=== PATIENT | female | born 1950 | race Caucasian/White ===

== ENCOUNTER 2017-08-21 09:25 | Emergency (ER) | payer MEDICARE, BC ==
[2017-08-21 11:46] VITALS: BP 179/81
--- NOTE | 2017-08-21 11:56 | UC ---
Respiratory Complaint HPI - HPI Summary HPI Summary: !0 days of worsening could and sinus pain, now cannot sleep at night due to cough - History of Current Complaint Chief Complaint: UCRespiratory Stated Complaint: COUGH,SINUS COMPLAINT Time Seen by Provider: 08/21/17 11:46 Hx Obtained From: Patient Hx Last Menstrual Period: 30 yrs ?: No Onset/Duration: Gradual Onset, Lasting Days - 10 Timing: Constant Severity Initially: Mild Severity Currently: Moderate Character: Cough: Nonproductive Aggravating Factors: Recumbent Position Alleviating Factors: Nothing Associated Signs And Symptoms: Positive: Pleuritic Chest Pain, URI, Nasal Congestion, Sinus Discomfort - Allergies/Home Medications Allergies/Adverse Reactions: Allergies Allergy/AdvReac Type Severity Reaction Status Date / Time Penicillins Allergy Severe Hives Verified 08/21/17 11:46 PMH/Surg Hx/FS Hx/Imm Hx Previously Healthy: No Endocrine History: Hypothyroidism, Dyslipidemia - Surgical History Surgical History: Yes Surgery Procedure, Year, and Place: L mastectomy, L kidney , appy - Family History Known Family History: Positive: Cardiac Disease, Hypertension - Social History Occupation: Retired Lives: With Family Alcohol Use: None Substance Use Type: None Smoking Status (MU): Never Smoked Tobacco Type: Cigarettes Amount Used/How Often: 1 PPD Length of Time of Smoking/Using Tobacco: YR 1999 Have You Smoked in the Last Year: No When Did the Patient Quit Smoking/Using Tobacco: 1978 - Immunization History Most Recent Influenza Vaccination: October 2014 Review of Systems Constitutional: Fatigue Skin: Negative Eyes: Negative ENT: Dental Pain, Nasal Discharge, Sinus Congestion, Sinus Pain/Tenderness Respiratory: Cough Cardiovascular: Negative Gastrointestinal: Negative Genitourinary: Negative Motor: Negative Neurovascular: Negative Musculoskeletal: Negative Neurological: Negative Psychological: Negative Is Patient Immunocompromised?: No All Other Systems Reviewed And Are Negative: Yes Physical Exam Triage Information Reviewed: Yes Appearance: Well-Appearing, Well-Nourished, Pain Distress Vital Signs: Initial Vital Signs Temp 97.8 F 08/21/17 11:42 Pulse 72 08/21/17 11:42 Resp 18 08/21/17 11:42 BP 179/81 08/21/17 11:42 Pulse Ox 100 08/21/17 11:42 Vital Signs Reviewed: Yes Eye Exam: Normal Eyes: Positive: Conjunctiva Clear ENT Exam: Normal ENT: Positive: Normal ENT inspection, Hearing grossly normal, Pharynx normal, Nasal congestion, Nasal drainage, TMs normal, Sinus tenderness, Uvula midline. Negative: Tonsillar swelling, Tonsillar exudate, Trismus, Muffled voice, Hoarse voice, Dental tenderness Dental Exam: Normal Neck exam: Normal Neck: Positive: Supple, Nontender, No Lymphadenopathy Respiratory Exam: Normal Respiratory: Positive: Chest non-tender, Lungs clear, Normal breath sounds, No respiratory distress, No accessory muscle use Cardiovascular Exam: Normal Cardiovascular: Positive: RRR, No Murmur, Pulses Normal, Brisk Capillary Refill Musculoskeletal Exam: Normal Musculoskeletal: Positive: Strength Intact, ROM Intact, No Edema Neurological Exam: Normal Neurological: Positive: Alert, Muscle Tone Normal Psychological Exam: Normal Skin Exam: Normal UC Diagnostic Evaluation - Laboratory O2 Sat by Pulse Oximetry: 100 Respiratory Course/Dx - Course Course Of Treatment: continue flonase, albuterol prn, zithromax and robitussin with Codiene rest increase fluids follow with pcp - Differential Dx/Diagnosis Provider Diagnoses: Acute Rhinosinusitis Discharge - Discharge Plan Condition: Stable Disposition: HOME Prescriptions: Albuterol HFA INHALER* [Ventolin HFA Inhaler*] 2 puff INH Q6H PRN #1 mdi PRN Reason: cough Azithromycin TAB* [Zithromax TAB (Z-ANTHONY) 250 mg #6 tabs] 2 tab PO .TODAY, THEN 1 DAILY #1 anthony Guaifenesin-Codeine [Cheratussin AC 100-10 mg/5Ml] 5 - 10 ml PO Q6H #120 syp MDD 40 Patient Education Materials: How to Use a Metered-Dose Inhaler (ED), Acute Bronchitis (ED), Hypertension (ED), Acute Cough (ED) Referrals: Tex REYES,Juancho Good [Primary Care Provider] - 2 Weeks
== END 2017-08-21 12:23 | disposition home or self-care (01) ==
LOC: UCCORT 09:25
DX: J01.90 Acute sinusitis, unspecified (principal); R53.83 Other fatigue; E03.9 Hypothyroidism, unspecified; E78.5 Hyperlipidemia, unspecified; Z88.0 Allergy status to penicillin; Z87.891 Personal history of nicotine dependence
CPT/HCPCS: 99212; G0463

== ENCOUNTER 2018-03-05 09:26 | Emergency (ER) | payer MEDICARE, BC ==
[2018-03-05 11:05] VITALS: BP 147/74
== END 2018-03-05 11:55 | disposition left against medical advice (07) ==
LOC: UCCORT 09:26
DX: R69 Illness, unspecified (principal); Z53.21 Procedure and treatment not carried out due to patient leaving prior to being seen by health care provider

== ENCOUNTER 2018-03-05 15:48 | Emergency (ER) | payer BC, MEDICARE ==
[2018-03-05 16:14] VITALS: BP 162/77
--- NOTE | 2018-03-05 16:22 | UC ---
Throat Pain/Nasal Derick HPI - HPI Summary HPI Summary: 67 y/o female presents to the urgent care c/o left side sinus pain and nasal congestion w/ yellowish nasal discharge for the past 3 weeks. Symptoms have been worsening for the past week and this morning she woke up w/ mild yellowish eye discharge on her left eye w/o any eye redness. Positive yellowish PND. Pain is 4/10. Pt has been taking Advil 600mg Po to alleviate symptoms. Pt denies fever, cough, SOB, chest pain, abdominal pain, N/V/D - History of Current Complaint Chief Complaint: UCRespiratory Stated Complaint: SINUSES Time Seen by Provider: 03/05/18 16:15 Hx Obtained From: Patient Hx Last Menstrual Period: n/a Onset/Duration: Gradual Onset, Lasting Weeks - 3 weeks, Still Present, Worse Since - last week Severity: Moderate Pain Intensity: 4 Pain Scale Used: 0-10 Numeric Cough: None Associated Signs & Symptoms: Positive: Sinus Discomfort, Nasal Discharge - Epiglottits Risk Factors Epiglottis Risk Factors: Negative - Allergies/Home Medications Allergies/Adverse Reactions: Allergies Allergy/AdvReac Type Severity Reaction Status Date / Time Penicillins Allergy Hives Verified 03/05/18 16:14 PMH/Surg Hx/FS Hx/Imm Hx Previously Healthy: Yes Endocrine History: Hypothyroidism, Dyslipidemia Cardiovascular History: Cardiac Disease Respiratory History: Asthma - Surgical History Surgical History: Yes Surgery Procedure, Year, and Place: L mastectomy, L kidney , appy - Family History Known Family History: Positive: Cardiac Disease, Hypertension - Social History Occupation: Retired Lives: With Family Alcohol Use: None Substance Use Type: None Smoking Status (MU): Never Smoked Tobacco Type: Cigarettes Amount Used/How Often: 1 PPD Length of Time of Smoking/Using Tobacco: YR 1999 Have You Smoked in the Last Year: No When Did the Patient Quit Smoking/Using Tobacco: 1978 - Immunization History Most Recent Influenza Vaccination: October 2014 Review of Systems Constitutional: Negative Skin: Negative Eyes: Eye Redness - left eey wl yellowish discharge this morning ENT: Nasal Discharge, Sinus Congestion, Sinus Pain/Tenderness Respiratory: Negative Cardiovascular: Negative Gastrointestinal: Negative Genitourinary: Negative Motor: Negative Neurovascular: Negative Musculoskeletal: Negative Neurological: Headache Psychological: Negative Is Patient Immunocompromised?: No All Other Systems Reviewed And Are Negative: Yes Physical Exam - Summary Physical Exam Summary: Vitals: reviewed General: Well developed, well-nourished female patient with NAD. Head and face: Normocephalic and atraumatic, Positive tenderness over the frontal and maxillary sinuses.. Eyes: PERRLA, EOMI x 2. Normal conjunctiva. No eye discharge. ENT: Ears and TM with normal limits. Nose: edematous and erythematous nasal mucosa with with yellowish discharge and erythematous mucosa. Pharynx with erythema, no exudate. +PND yellowish Neck: Supple, no JVD, no carotid bruits and no lymphadenopathy. Lungs: clear, no rales, no rhonchi, no wheezes. CVS: RRR, S1 and S2 present no murmurs or gallops appreciated. Abdomen: soft nontender with positive bowel sounds. Extremities: no edema noted. Neuro: WNL. Skin: warm and dry Triage Information Reviewed: Yes Vital Signs: Initial Vital Signs Temp 98.1 F 03/05/18 15:58 Pulse 69 03/05/18 15:58 Resp 16 03/05/18 15:58 BP 162/77 03/05/18 15:58 Pulse Ox 100 03/05/18 15:58 Throat Pain/Nasal Course/Dx - Course Course Of Treatment: 67 y/o female presents to the urgent care c/o left side sinus pain and nasal congestion w/ yellowish nasal discharge for the past 3 weeks. Symptoms have been worsening for the past week and this morning she woke up w/ mild yellowish eye discharge on her left eye w/o any eye redness. Positive yellowish PND. Pain is 4/10. Pt has been taking Advil 600mg Po to alleviate symptoms. Pt denies fever, cough, SOB, chest pain, abdominal pain, N/V /D. Hx obtained. Pt with 3 weeks of symptoms getting worse. Pt PCN allergic . Rx Doxycycline PO and flonase nasal spray. Pt advised to stop Advil since she only has 1 [place]. Advised to take Tylenol PO to alleivate pain and GAMEZ.Pt's BP is elevated today advised to decrease salt in diet, monitor BP and f/u with PCP for further management. Discharge instructions explained to Pt. Advised to Return to the clinic or PCP if symptoms do not improve.Pt understood and agreed with plan of care. - Differential Dx/Diagnosis Differential Diagnosis/HQI/PQRI: Otitis Media, Pharyngitis, Sinusitis, URI Provider Diagnoses: 1- Acte bacterial sinusitis. 2- Elevated BP w/o Hx of HTN Discharge - Sign-Out/Discharge Documenting (check all that apply): Discharge/Admit/Transfer - D/C home - Discharge Plan Condition: Stable Disposition: HOME Prescriptions: DOXYcycline CAP(*) [DOXYcycline 100MG CAP(*)] 100 mg PO BID #20 cap Patient Education Materials: Sinusitis (ED), Low-Sodium Diet (ED) Referrals: Tex REYES,Juancho Good [Primary Care Provider] - 3 Days Additional Instructions: 1- Please increase fluid intake and rest. take full course of antibiotic to avoid resistance 2-Use Flonase nasal spray ypu have at home as directed to help drain fluid. Also buy saline drops to clear sinuses 3-Take Tylenol PO q4-6hrs PO to alleviates sinus pain and headache 4-Return to the clinic or PCP if symptoms do not improve for further management and treatment 5-Your BP is elevated today. please decrease salt in your diet, monitor BP and if it continues to be elevated please f/u with your PCP for further management - Billing Disposition and Condition Condition: STABLE Disposition: Home
== END 2018-03-05 16:53 | disposition home or self-care (01) ==
LOC: UCCORT 15:48
DX: J01.90 Acute sinusitis, unspecified (principal); B96.89 Other specified bacterial agents as the cause of diseases classified elsewhere; R03.0 Elevated blood-pressure reading, without diagnosis of hypertension; Z87.891 Personal history of nicotine dependence; Z88.0 Allergy status to penicillin
CPT/HCPCS: 99212; G0463

== ENCOUNTER 2019-05-15 10:37 | Emergency (ER) | payer MEDICARE, BC ==
[2019-05-15 11:23] VITALS: BP 170/83
--- NOTE | 2019-05-15 11:47 | UC ---
Throat Pain/Nasal Derick HPI - HPI Summary HPI Summary: 69-year-old female who had cold symptoms for about 2 weeks which she felt a result but now she has sinus pressure especially on the left maxillary sinus area. She denies any fever or chills. She does have a left earache as well. - History of Current Complaint Chief Complaint: UCRespiratory Stated Complaint: SINUS COMPLAINT Time Seen by Provider: 05/15/19 11:19 Hx Obtained From: Patient Hx Last Menstrual Period: n/a ?: No Onset/Duration: Gradual Onset Severity: Moderate Pain Intensity: 4 Cough: None Associated Signs & Symptoms: Positive: Sinus Discomfort - Allergies/Home Medications Allergies/Adverse Reactions: Allergies Allergy/AdvReac Type Severity Reaction Status Date / Time Penicillins Allergy Hives Verified 05/15/19 11:15 Home Medications: Home Medications Ibuprofen TAB* [Advil TAB*] 400 mg PO Q4H PRN 05/15/19 [History Confirmed ] L.acidoph,Paracasei, B.lactis [Probiotic] 1 each PO BEDTIME 05/15/19 [History Confirmed 05/15/19] diphenhydrAMINE HCl [Benadryl Allergy 25 MG CAP] 25 mg PO BEDTIME PRN 05/15/19 [ History Confirmed 05/15/19] PMH/Surg Hx/FS Hx/Imm Hx Previously Healthy: Yes Endocrine History: Thyroid Disease Cardiovascular History: Cardiac Disease - Surgical History Surgical History: Yes Surgery Procedure, Year, and Place: L mastectomy, L kidney , appy - Family History Known Family History: Positive: Cardiac Disease, Hypertension - Social History Alcohol Use: None Substance Use Type: None Smoking Status (MU): Former Smoker Type: Cigarettes Amount Used/How Often: 1 PPD Length of Time of Smoking/Using Tobacco: YR 1999 Have You Smoked in the Last Year: No When Did the Patient Quit Smoking/Using Tobacco: 1978 - Immunization History Most Recent Influenza Vaccination: October 2014 Review of Systems All Other Systems Reviewed And Are Negative: Yes ENT: Positive: Ear Ache, Sinus Congestion, Sinus Pain/Tenderness, Other - Mildly muffled hearing left ear. Neurological: Negative: Headache, Weakness, Paresthesia, Numbness Is Patient Immunocompromised?: No Physical Exam Triage Information Reviewed: Yes Appearance: Well-Appearing, No Pain Distress, Well-Nourished Vital Signs: Initial Vital Signs Temp 99.2 F 05/15/19 11:19 Pulse 78 05/15/19 11:19 Resp 16 05/15/19 11:19 BP 170/83 05/15/19 11:19 Pulse Ox 98 05/15/19 11:19 Vital Signs Reviewed: Yes Eyes: Positive: Conjunctiva Clear ENT: Positive: Pharynx normal, TM red - Left tympanic membrane and canal is erythematous, TM has what appears to be whitish papules. Pt also has some small red papules around the external canal and some dry almost fungal appearing rash behind her right ear. She states it all feels itchy., Sinus tenderness - Left maxillary sinus tenderness on palpation, Uvula midline, Other - Tongue has no areas of redness or papules Neck: Positive: Supple, Nontender, No Lymphadenopathy Respiratory: Positive: Lungs clear, Normal breath sounds, No respiratory distress, No accessory muscle use Cardiovascular: Positive: RRR, No Murmur, Pulses Normal, Brisk Capillary Refill Musculoskeletal Exam: Normal Neurological Exam: Normal Neurological: Positive: Alert, Muscle Tone Normal, Other: - CN II-XII intact, good arm strength against resistance. Smile and face symmetrical bilaterally Psychological Exam: Normal Skin Exam: Normal Throat Pain/Nasal Course/Dx - Course Course Of Treatment: Patient is comfortable here. I consulted with Dr. Lai, who also examined the patient (See her note). At this point in time, because there appears - Differential Dx/Diagnosis Provider Diagnosis: Otitis externa of left ear Discharge - Sign-Out/Discharge Documenting (check all that apply): Patient Departure All imaging exams completed and their final reports reviewed: No Studies - Discharge Plan Condition: Fair Disposition: HOME Patient Education Materials: Earache (ED) Referrals: Tex REYES,Juancho Good [Primary Care Provider] - Additional Instructions: May alternate Tylenol every 4 hours and Motrin every [address] Dr. Rosales's office on Friday morning. It is extremely important that you be seen by him on Friday. If your symptoms worsen over the eekend and you have a fever, chills, worsening ear pain, facial swelling, any kind of facial weakness or paralysis, go to the ER immediately. - Billing Disposition and Condition Condition: FAIR Disposition: Home
== END 2019-05-15 12:48 | disposition home or self-care (01) ==
LOC: UCCORT 10:37
DX: H60.92 Unspecified otitis externa, left ear (principal); Z88.0 Allergy status to penicillin; Z87.891 Personal history of nicotine dependence
CPT/HCPCS: 99212; G0463

== ENCOUNTER 2019-07-12 12:00 | Emergency (ER) | payer MEDICARE, BC ==
[2019-07-12 13:16] VITALS: BP 168/83
--- NOTE | 2019-07-12 13:34 | UC ---
Throat Pain/Nasal Derick HPI - HPI Summary HPI Summary: 69-year-old female comes in with a chief complaint of 3 days of sinus pressure. She does have some rhinorrhea. She has pain primarily in the maxillary sinuses. She does have some sore throat. Have some chills. No fevers measured. 20 and ibuprofen and acetaminophen which does help somewhat pain. Patient has dentures and denies any dental or thumb pain. She does have a headache that goes up into the middle of her head. No neck pain or neck stiffness no back pain. - History of Current Complaint Chief Complaint: UCGeneralIllness Stated Complaint: SINUS COMPLAINT Time Seen by Provider: 07/12/19 13:12 Hx Last Menstrual Period: n/a Pain Intensity: 3 - Allergies/Home Medications Allergies/Adverse Reactions: Allergies Allergy/AdvReac Type Severity Reaction Status Date / Time Penicillins Allergy Hives Verified 07/12/19 13:13 Home Medications: Home Medications Lisinopril TAB* [Prinivil TAB*] 10 mg PO DAILY 07/12/19 [History Confirmed 07/12] PMH/Surg Hx/FS Hx/Imm Hx Previously Healthy: Yes Endocrine History: Hypothyroidism, Dyslipidemia Cardiovascular History: Hypertension - Surgical History Surgical History: Yes Surgery Procedure, Year, and Place: L mastectomy, L kidney , appy - Family History Known Family History: Positive: Cardiac Disease, Hypertension - Social History Alcohol Use: None Substance Use Type: None Smoking Status (MU): Former Smoker Type: Cigarettes Amount Used/How Often: 1 PPD Length of Time of Smoking/Using Tobacco: 1999 Have You Smoked in the Last Year: No When Did the Patient Quit Smoking/Using Tobacco: 1978 - Immunization History Most Recent Influenza Vaccination: October 2014 Review of Systems All Other Systems Reviewed And Are Negative: Yes Constitutional: Positive: Chills Skin: Positive: Negative Eyes: Positive: Negative ENT: Positive: Sore Throat, Nasal Discharge, Sinus Congestion, Sinus Pain/ Tenderness Respiratory: Positive: Negative Cardiovascular: Positive: Negative Gastrointestinal: Positive: Negative Motor: Positive: Negative Neurovascular: Positive: Negative Musculoskeletal: Positive: Negative Neurological: Positive: Negative Psychological: Positive: Negative Is Patient Immunocompromised?: No Physical Exam Triage Information Reviewed: Yes Appearance: Well-Appearing, No Pain Distress, Well-Nourished Vital Signs: Initial Vital Signs Temp 97.7 F 07/12/19 13:13 Pulse 64 07/12/19 13:13 Resp 18 07/12/19 13:13 BP 168/83 07/12/19 13:13 Pulse Ox 99 07/12/19 13:13 Vital Signs Reviewed: Yes Eye Exam: Normal Eyes: Positive: Conjunctiva Clear Neck: Positive: Supple Respiratory: Positive: Lungs clear, Normal breath sounds, No respiratory distress Cardiovascular: Positive: RRR Musculoskeletal: Positive: Strength Intact, ROM Intact Neurological: Positive: Alert, Muscle Tone Normal Psychological: Positive: Age Appropriate Behavior Skin Exam: Normal Throat Pain/Nasal Course/Dx - Course Course Of Treatment: DISCUSSED VIRAL VERSES BACTERIAL INFECTIONS AND THE ROLE OF ANTIBIOTIC. PATIENT PREFERS TO BE ON ANTIBIOTICS AT THIS TIME. The primary pain is in the maxillary sinus area. No evidence of dental infection. No neck stiffness no back stiffness. Patient reports that doxycycline is helped her in the past with infections. Patient's to get reevaluated if worse or not improving. - Differential Dx/Diagnosis Provider Diagnosis: Sinusitis Discharge ED - Sign-Out/Discharge Documenting (check all that apply): Patient Departure All imaging exams completed and their final reports reviewed: No Studies - Discharge Plan Condition: Stable Disposition: HOME Prescriptions: DOXYcycline CAP(*) [DOXYcycline 100MG CAP(*)] 100 mg PO BID #20 cap Patient Education Materials: Acetaminophen (By mouth), Ibuprofen (By mouth), Sinusitis (ED) Referrals: Tex REYES,Juancho Good [Primary Care Provider] - Additional Instructions: FOLLOW UP WITH YOUR DOCTOR IF NOT COMPLETELY IMPROVED. GET REEVALUATED SOONER IF NOT IMPROVING OR YOUR CONDITION WORSENS OR ANY QUESTIONS OR CONCERNS - Billing Disposition and Condition Condition: STABLE Disposition: Home
== END 2019-07-12 13:40 | disposition home or self-care (01) ==
LOC: UCCORT 12:00
DX: J32.9 Chronic sinusitis, unspecified (principal); J02.9 Acute pharyngitis, unspecified; I10 Essential (primary) hypertension; Z88.0 Allergy status to penicillin; Z79.899 Other long term (current) drug therapy; Z87.891 Personal history of nicotine dependence
CPT/HCPCS: 99212; G0463

== ENCOUNTER 2019-07-21 13:18 | Emergency (ER) | payer MEDICARE, BC ==
--- NOTE | 2019-07-21 14:01 | UC ---
Throat Pain/Nasal Derick HPI - HPI Summary HPI Summary: sinus pain and pressure x 2 weeks was seen 10 days ago , started on Doxy symptoms has improved but not fully gone cont. to have body aches, chills no cough, sinus pressure has improved - History of Current Complaint Chief Complaint: UCGeneralIllness Stated Complaint: COUGH,[place],ACHY Time Seen by Provider: 07/21/19 13:30 Hx Obtained From: Patient Hx Last Menstrual Period: n/a Onset/Duration: Gradual Onset, Lasting Weeks - 2, Still Present Severity: Moderate Pain Intensity: 5 Cough: None Associated Signs & Symptoms: Positive: Sinus Discomfort, Nasal Discharge. Negative: Fever, Rash - Allergies/Home Medications Allergies/Adverse Reactions: Allergies Allergy/AdvReac Type Severity Reaction Status Date / Time Penicillins Allergy Hives Verified 07/21/19 13:39 PMH/Surg Hx/FS Hx/Imm Hx Endocrine History: Thyroid Disease, Hypothyroidism Cardiovascular History: Hypertension Cancer History: Breast Cancer - Surgical History Surgical History: Yes Surgery Procedure, Year, and Place: L mastectomy, L kidney , appy - Family History Known Family History: Positive: Cardiac Disease, Hypertension - Social History Alcohol Use: None Substance Use Type: None Smoking Status (MU): Former Smoker Type: Cigarettes Amount Used/How Often: 1 PPD Length of Time of Smoking/Using Tobacco: YR 1999 Have You Smoked in the Last Year: No When Did the Patient Quit Smoking/Using Tobacco: 1978 - Immunization History Most Recent Influenza Vaccination: October 2014 Review of Systems All Other Systems Reviewed And Are Negative: Yes Constitutional: Positive: Chills, Fatigue Skin: Positive: Negative Eyes: Positive: Negative ENT: Positive: Nasal Discharge, Sinus Congestion Respiratory: Positive: Negative Cardiovascular: Negative: Palpitations, Chest Pain Gastrointestinal: Positive: Negative Genitourinary: Positive: Negative Musculoskeletal: Positive: Arthralgia, Myalgia Is Patient Immunocompromised?: No Physical Exam Triage Information Reviewed: Yes Appearance: Well-Appearing, No Pain Distress, Well-Nourished Vital Signs: Initial Vital Signs Temp 98.6 F 07/21/19 13:34 Pulse 82 07/21/19 13:34 Resp 17 07/21/19 13:34 BP 212/98 07/21/19 13:34 Pulse Ox 100 07/21/19 13:34 Vital Signs Reviewed: Yes Eye Exam: Normal Eyes: Positive: Conjunctiva Clear ENT: Positive: Normal ENT inspection, Hearing grossly normal, Pharynx normal, Nasal congestion, TMs normal Neck: Positive: Supple, Nontender, No Lymphadenopathy Respiratory: Positive: Chest non-tender, Lungs clear, Normal breath sounds Cardiovascular: Positive: RRR, No Murmur, Pulses Normal Skin Exam: Normal Throat Pain/Nasal Course/Dx - Differential Dx/Diagnosis Provider Diagnosis: Acute bacterial sinusitis, Hypertension Discharge ED - Sign-Out/Discharge Documenting (check all that apply): Patient Departure All imaging exams completed and their final reports reviewed: No Studies - Discharge Plan Condition: Stable Disposition: HOME Patient Education Materials: Sinusitis (ED), Hypertension (ED) Referrals: Tex REYES,Juancho Good [Primary Care Provider] - 5 Days Additional Instructions: cont. with Doxy rest, fluid, follow up if not better in 5 days, sooner if getting worse monitor your bp daily , cont. with your bp meds, follow up with your pcp in one week - Billing Disposition and Condition Condition: STABLE Disposition: Home
[2019-07-21 14:05] VITALS: BP 168/94
== END 2019-07-21 14:05 | disposition home or self-care (01) ==
LOC: UCCORT 13:18
DX: J01.90 Acute sinusitis, unspecified (principal); B96.89 Other specified bacterial agents as the cause of diseases classified elsewhere; I10 Essential (primary) hypertension; Z87.891 Personal history of nicotine dependence; Z88.0 Allergy status to penicillin; Z85.3 Personal history of malignant neoplasm of breast
CPT/HCPCS: 99212; G0463